=== PATIENT | female | born 1955 | race Caucasian/White ===

== ENCOUNTER 2016-09-18 15:19 | Outpatient (CLI) | payer OTHER ==
[~2016-09-18 15:19] MED LIST: ACIDOPHILUS PO; AMBIEN5 MG PO; ATORVASTATIN CA40 MG PO; CYMBALTA60 MG PO; DETROL LA4 MG PO; FLUTICASONE PR50 MCG; LEVOTHYROXINE100 MCG PO; LISINOPRIL10 MG PO; MAXZIDE-25 PO; MELOXICAM15 MG PO; PERCOCET1 TA1 PO; TIZANIDINE HCL4 MG
--- NOTE | 2016-09-18 16:36 | DIAGNOSTIC IMAGING REPORT ---
PROCEDURE: MG UNILATERAL DIAG-LT W/CAD INDICATION: 6 MONTH FOLLOWUP TO CONFIRM STABILITY TECHNIQUE: CC, MLO and true-lateral digital implant displacement views of left breast. In addition, spot compression CC and MLO views were obtained of the upper and central left breast (region of clinical concern). COMPARISON: Comparison is made to left mammogram left breast ultrasound on 03/22/2016 and screening mammogram study (01/26/2016). FINDINGS: MAMMOGRAM: Computer-aided detection applied. Mildly dense parenchymal pattern. There is no evidence of mass or architectural distortion. No evidence of suspicious calcification. Left breast ultrasound is not indicated at this time. IMPRESSION: 1. Negative left mammogram. 2. Resume routine screening schedule (February 2016). 3. Findings discussed with the patient. RESULT CODE: 1- Negative. A. A negative report should not delay biopsy if a dominant or clinically suspicious mass is present. 10-15% of cancers are not identified by x-ray. B. A negative report may reinforce clinical impression. C. Adenosis and dense breasts may obscure an underlying neoplasm. D. False positive reports average 6-10%. E.. A yearly screening mammogram is recommended. A reminder letter will be scheduled.
== END 2016-09-18 23:00 ==
LOC: MAM SRH 15:19
DX: R92.8 Other abnormal and inconclusive findings on diagnostic imaging of breast (principal)